=== PATIENT | female | born 1940 | race Caucasian/White ===

== ENCOUNTER 2017-01-09 05:13 | Day surgery (SDC) | payer OTHER ==
[2017-01-08 09:48] LABS: HEMATOCRIT 37.4 % (36.0-48.0); MCH 28.7 pg (26.0-34.0); MCHC 32.1 g/dL (31.0-37.0); MCV 89.5 fL (80.0-100.0); MEAN PLATELET VOLUME 9.6 fL (7.4-10.4); RBC 4.18 10x6/uL (4.00-5.40); RDW 13.1 % (11.5-14.5); WBC 5.1 10x3/uL (4.8-10.8)
[2017-01-08 10:10] LABS: CALC OSMOLALITY 285 mosm/kg (275-300); CARBON DIOXIDE 31.2 mmol/L (21.0-32.0); CHLORIDE - SERUM 104 mmol/L (98-107); CREATININE - SERUM 0.7 mg/dL (0.6-1.3); GLUCOSE 78 mg/dL (74-106); POTASSIUM - SERUM 3.4 mmol/L (3.5-5.1); SODIUM 143 mmol/L (136-145); UREA NITROGEN 18 mg/dL (7-18); eGFR NON AFRICAN AMERICAN 86 mL/min (90-120)
[~2017-01-09] VITALS: Ht 170.2 cm; Wt 65.8 kg
[~2017-01-09 05:13] MED LIST: CO Q-1050 MG PO; CRESTOR5 MG PO; DIOVAN HCT 80-11 TAB PO; HYDROCODONE-APA1 TAB PO; KLONOPIN0.5 MG PO; KRILL OIL 1,001 EAC1 PO; LEXAPRO20 MG PO; NEURONTIN 300300 MG PO; SUPER B COMPLE150 MG PO; VITAMIN B-122500 MCG PO; VITAMIN D3400 UNI1 PO; WELLBUTRIN100 MG PO
[2017-01-09 10:01] VITALS: BP 111/57; Ht 170.2 cm; Wt 65.8 kg
--- NOTE | 2017-01-09 14:08 | NUR ---
1350-RECEIVED PT FROM PACU SLEEPY, NO DISTRESS VSS PT DENIES ANY N/V FULL LIQUID TRAY GIVEN SON AT BEDSIDE LEFT FOOT WITH POST OP SHOE ON AND ICE APPLIED PT DENIES ANY PAIN AT THIS TIME
--- NOTE | 2017-01-09 15:03 | NUR ---
1440-IV D/C'D, PT TOLERATED. CATHETER INTACT 1440- UP OOB TO BR. SOME BLEEDING FROM DRESSING. PT VOIDED WITHOUT DIFFICULTY. DRESSED AND BACK TO BED VIA WALKER AND NON-WEIGHT BEARING TO LEFT FOOT. D/C INSTRUCTIONS COMPLETED AND SIGNED. 1450- DR. KAPADIA NOTIFIED, DRESSING REINFORCED WITH 4X4S AND MAINOR WRAP, POST OP SHOE PLACED WELL. PT INSTRUCTED TO REMOVE ADDED 4X4S AND MAINOR WRAP TOMORROW AND TO LEAVE ORIGINAL DRESSING PER DR. KAPADIA. 1500- PT D/C'D VIA WHEELCHAIR WITH SON.
--- NOTE | 2017-02-06 16:40 | OP ---
PATIENT NAME: JULIO CESAR SOTO MEDICAL RECORD: [id number] :41 LOCATION:D.OPS ADMISSION DATE: SURGEON: RUFINO REAL DATE OF OPERATION: 01/09/2017 SURGEON: Rufino Real DPM. PREOPERATIVE DIAGNOSIS: Osteoarthritis second metatarsophalangeal joint, left foot. POSTOPERATIVE DIAGNOSIS: Osteoarthritis second metatarsophalangeal joint, left foot. PROCEDURE: Eric-implant arthroplasty second MPJ left foot. ANESTHESIA: Local with monitored anesthesia care. HEMOSTASIS: Pneumatic ankle tourniquet inflated to 250 mmHg. COMPLICATIONS: None. ESTIMATED BLOOD LOSS: Minimal. REPORT OF OPERATION: On the preoperative area, the chart was reviewed. Consent reviewed and signed. DESCRIPTION OF PROCEDURE: The patient was brought in the operating room and placed in the operating table in supine position. A timeout was called with Dr. Real, who identified the patient, the surgical site, and the surgery to be performed. Once appropriate anesthesia was obtained, the foot was prepped and draped in the usual aseptic manner. The pneumatic ankle tourniquet was inflated to 250 mmHg on the well-padded left ankle. PROCEDURE NUMBER 1: Eric-implant arthroplasty second metatarsophalangeal joint, left foot Attention was directed to the second metatarsophalangeal joint dorsally. A 4 cm linear incision was made directly over the joint. This incision was carried deep to soft tissue with care being taken to retract all vital neurovascular structures. All bleeders were cauterized along the way. The extensor tendon was then identified and retracted medially and a linear incision was made through the joint capsule. The capsule structures were then reflected from the head of the first metatarsal and the base of the proximal phalanx. There was abundant spurring noted about the second metatarsal phalangeal joint both on the head of the second metatarsal and the base of the proximal phalanx. Utilizing a rongeur, all hypertrophied bone was resected. The collateral ligaments were released. Utilizing a sagittal saw, the head of the second metatarsal was resected. This was done at the appropriate angle to receive the eric-implant. Any remaining spurs were then removed with the rongeur. The surgical site was then irrigated with copious amounts of normal sterile saline via bulb syringe. The head of the second metatarsal was then prepped per the instrument room technician's recommendation to receive the eric-implant. It was broached to the appropriate size and the implant was secured into the second metatarsal head. It was OPERATIVE REPORT [id number] JULIO CESAR SOTO impacted firmly with a mallet and tamp. There were no complications and the implant seated well. At this time, the area was irrigated with copious amounts of normal sterile saline via bulb syringe. The joint capsule was then reapproximated and coapted utilizing 3-0 Vicryl. The subQ was then reapproximated and coapted utilizing 3-0 Vicryl. The skin was then reapproximated and coapted utilizing 4-0 Prolene. A dressing consisting of Xeroform, 4 x 4, Kerlix, and an Atif bandage was then applied to the left foot. The pneumatic ankle tourniquet was deflated and capillary refill time was noted to be instantaneous to all digits of the left foot. The patient tolerated the procedure and anesthesia well. She left the operating room with vital signs stable and capillary refill time intact. The patient was discharged home with instructions to ice and elevate the left foot. She was dispensed my cell phone number for any after hour difficulties. We will follow up with her next week for dressing change, she was dispensed a postop shoe to help offload the foot. TRANSINT:[id number] Voice Confirmation ID: [id number] DOCUMENT ID: [id number] RUFINO REAL at 1640 CC: [id number] DICTATION DATE: 01/09/171722 AUTO DISMANTLER: 01/09/17 2216 [facility] 01/09/[address] [address]
== END 2017-01-09 15:00 | disposition home or self-care (01) ==
LOC: D.OPS 05:13 → D.PAN 11:30 → D.OPS 15:00
PROVIDERS: Anesthesiology
DX: M19.072 Primary osteoarthritis, left ankle and foot (principal)

== ENCOUNTER 2018-02-12 10:10 | Day surgery (SDC) | payer MEDICARE ==
[2018-02-10 15:08] LABS: HEMATOCRIT 37.8 % (36.0-48.0); MCH 28.3 pg (26.0-34.0); MCHC 31.7 g/dL (31.0-37.0); MCV 89.2 fL (80.0-100.0); MEAN PLATELET VOLUME 9.2 fL (7.4-10.4); RBC 4.24 10x6/uL (4.00-5.40); RDW 13.6 % (11.5-14.5); WBC 4.5 10x3/uL (4.8-10.8)
[2018-02-10 15:50] LABS: CALC OSMOLALITY 290 mosm/kg (275-300); CALCIUM 9.2 mg/dL (8.5-10.1); CARBON DIOXIDE 30.2 mmol/L (21.0-32.0); CHLORIDE - SERUM 105 mmol/L (98-107); CREATININE - SERUM 0.7 mg/dL (0.6-1.3); GLUCOSE 86 mg/dL (74-106); POTASSIUM - SERUM 3.7 mmol/L (3.5-5.1); SODIUM 146 mmol/L (136-145); UREA NITROGEN 15 mg/dL (7-18); eGFR NON AFRICAN AMERICAN 86 mL/min (90-120)
[~2018-02-12] VITALS: Ht 172.7 cm; Wt 63.5 kg
--- NOTE | ~2018-02-12 | OP ---
PATIENT NAME: JULIO CESAR SOTO MEDICAL RECORD: [id number] :41 LOCATION:D.[facility] ADMISSION DATE: SURGEON: ROGER REAL DATE OF OPERATION: 02/12/2018 SURGEON: Roger Real DPM PREOPERATIVE DIAGNOSIS: Painful hardware, left foot. POSTOPERATIVE DIAGNOSIS: Painful hardware, left foot. PROCEDURE: Removal of hardware, left foot. ANESTHESIA: Local with monitored anesthesia care. HEMOSTASIS: Pneumatic ankle tourniquet inflated to 250 mmHg. ESTIMATED BLOOD LOSS: Minimal. MATERIALS: 3-0 Vicryl and 4-0 Prolene. INJECTABLES: A 10 cc of 0.5% bupivacaine plain. INDICATIONS: The patient has history of pain associated with implant in the second metatarsophalangeal joint on the left foot. We have tried conservative modalities without success. She is here today for removal of the implant. We have discussed the risks and benefits of the procedure. Complications were reviewed. All questions were answered. She was appropriately consented for the above-mentioned procedure. DESCRIPTION OF PROCEDURE: The patient was brought in the operating room and placed in the operating table in supine position. A timeout was called with Dr. Real, who identified the patient, surgical site, and surgery to be performed. Once appropriate anesthesia was obtained, the foot was prepped and draped in the usual aseptic manner. The pneumatic ankle tourniquet was inflated to 250 mmHg on the well-padded left ankle. Attention was directed to the dorsal aspect of the second metatarsophalangeal joint where a 4-cm linear incision was made. This incision was carried deep to soft tissue with care being taken to retract all vital neurovascular structures. All bleeders were cauterized along the way. The periosteum was reflected from the second metatarsophalangeal joint, thus exposing the implant on the first and the second metatarsal head. Next, utilizing combination of a freer and a hemostat, the implant was removed in toto. The surgical site was then inspected for any remaining pathological tissue and there was some hypertrophied bone noted as the head of the second metatarsal, this was removed by a rongeur. The surgical site was then irrigated with copious amounts of normal sterile saline and Bovie was used to obtain hemostasis. The periosteum was then reapproximated and coapted using 3-0 Vicryl. The subcutaneous was reapproximated and coapted using 3-0 Vicryl. The skin was reapproximated and coapted using 4-0 Prolene. A dressing consisting of Xeroform, 4 x 4's, Kerlix, and Atif bandage was applied to the left foot. Pneumatic ankle tourniquet was deflated and capillary refill time is immediate to all digits of the middle foot. OPERATIVE REPORT [id number] JULIO CESAR SOTO The patient tolerated the procedure and anesthesia well. She left the operating room with vital signs stable and capillary refill time intact. The patient was discharged home with instructions to ice and elevate the left foot. She has a postop shoe to further help offload the foot. She already has prescriptions for hydrocodone and oxycodone from the physicians at home and she will utilize that for pain management. She has my cell phone number for any after hour difficulties and there were no complications with this procedure. TRANSINT:[id number] Voice Confirmation ID: [id number] DOCUMENT ID: [id number] ROGER REAL at 1200 CC: [id number] DICTATION DATE: 02/12/18 1556 COMPLIANCE ADMINISTRATOR: 02/12/18 1649 [facility] 02/12/18 [id number] [place] [address]
[~2018-02-12 10:10] MED LIST changes: +ZANTAC150 MG PO; +ZYRTEC10 MG PO
[2018-02-12] MEDS ORDERED: BAYER CHEWABLE81 MG PO (11:04)
[2018-02-12] MEDS ORDERED: OMEGA 3 FISH OI1 CAP PO (11:05)
[2018-02-12] MEDS ORDERED: CO Q-1030 MG PO (11:05)
[2018-02-12] MEDS ORDERED: B12 SL (11:07)
[2018-02-12 11:14] VITALS: BP 115/59; Ht 172.7 cm; Wt 63.5 kg
== END 2018-02-12 14:05 | disposition home or self-care (01) ==
LOC: D.OPS 10:10 → D.PAN 12:00 → D.OPS 12:00
PROVIDERS: Anesthesiology
DX: T84.84XA Pain due to internal orthopedic prosthetic devices, implants and grafts, initial encounter (principal); M79.672 Pain in left foot; Z01.812 Encounter for preprocedural laboratory examination